=== PATIENT | female | born 1995 | race Caucasian/White ===

== ENCOUNTER → 2018-08-11 08:57 | Outpatient (CLI) | payer BC, SELFPAY ==
[2018-08-11 11:31] LABS: Urine N gonorrhoeae NOT DETECTED
[2018-08-11 11:42] LABS: HIV 1 and 2 Antibody NEGATIVE (NEGATIVE); Hep C Virus Ab w/Reflex Quant NEGATIVE s/c (NEGATIVE)
[2018-08-11 11:50] LABS: Urine Chlamydia NOT DETECTED
[2018-08-13 12:21] LABS: RPR Screen Nonreactive (Nonreactive)
[2018-08-14 14:47] LABS: Hepatitis B Core Antibody Nonreactive (Nonreactive)
== END ==
PROVIDERS: Visit Provider Physician Assistant
DX: Z11.3 Encounter for screening for infections with a predominantly sexual mode of transmission (principal)
CPT/HCPCS: 36415; 86592; 86703; 86704; 86803; 87491; 87591

== ENCOUNTER → 2019-12-13 11:49 | Outpatient (CLI) | payer BC, SELFPAY ==
[2019-12-13 12:31] LABS: Add Manual Diff / Slide Review NO; Basophils Absolute Auto 0 /uL (0-100); Basophils Percent Auto 1.1 % (0-2); Eosinophils Absolute Auto 100 /uL (0-450); Eosinophils Percent Auto 1.2 % (2-4); Hematocrit 40.8 % (36-46); Lymphocytes Absolute Auto 1500 /uL (1100-4500); Lymphocytes Percent Auto 34.9 % (25-40); Mean Corpuscular HGB Conc 34.2 % (30-36); Mean Corpuscular Hemoglobin 30.2 PG (26-34); Mean Corpuscular Volume 88.2 fL (80-100); Monocytes Absolute Auto 400 /uL (0-900); Monocytes Percent Auto 9.5 % (3-14); Neutrophils Absolute Auto 2400 /uL (1500-7000); Neutrophils Percent Auto 53.3 % (50-75); Platelet Count 282 X10^3/uL (150-400); Red Blood Cell Count 4.62 X10^6/uL (4.0-5.2); Red Cell Distribution Width 13.2 % (11.6-14.8); White Blood Cell Count 4.4 X10^3/uL (4.5-11.0)
[2019-12-13 12:45] LABS: Hemoglobin A1C% w Est Avg Glu 4.5 % (4.0-6.0)
[2019-12-13 13:43] LABS: Alanine Aminotransferase 14 IU/L (<35); Albumin 4.7 g/dL (3.5-5.0); Albumin Globulin Ratio 1.7 (1.0-2.8); Alkaline Phosphatase 57 U/L (38-126); Aspartate Aminotransferase 28 IU/L (14-36); BUN Creatinine Ratio 12.3 (6-22); Bilirubin Total 0.3 mg/dL (0.2-1.3); Blood Urea Nitrogen 8 mg/dL (7-17); Calcium 9.9 mg/dL (8.4-10.2); Carbon Dioxide 28 mmol/L (22-32); Chloride 104 mmol/L (98-107); Cholesterol 161 mg/dL (140-199); Estimated Glomerular Filt Rate > 60.0 mL/min (>60); Globulin 2.8 g/dL (1.7-4.1); Glucose 73 mg/dL (70-100); HDL Cholesterol 90 mg/dL (40-60); HEMOLYSIS < 15 (0-50); LDL Cholesterol Calculated 62 mg/dL (<100); Potassium 4.6 mmol/L (3.4-5.1); Sodium 139 mmol/L (137-145); Total Protein 7.5 g/dL (6.3-8.2); Triglycerides 44 mg/dL (35-150); Urine N gonorrhoeae NOT DETECTED
[2019-12-13 13:46] LABS: Urine Chlamydia NOT DETECTED
[2019-12-13 15:00] LABS: TSH w/ Reflex to FT4 1.35 uIU/mL (0.47-4.68)
[2019-12-14 04:08] LABS: RPR Screen Non Reactive (Non Reactive)
[2019-12-14 04:36] LABS: HIV Ag/Ab, 4th Gen Non Reactive (Non Reactive)
[2019-12-14 08:13] LABS: HCV AB <0.1 s/co ratio (0.0-0.9)
== END ==
PROVIDERS: Family Medicine; PCP Family Medicine; Referring Provider Family Medicine; Visit Provider Family Medicine
DX: Z00.00 Encounter for general adult medical examination without abnormal findings (principal)
CPT/HCPCS: 36415; 80053; 80061; 83036; 84443; 85025; 86592; 86803; 87389; 87491; 87591